=== PATIENT | female | born 1970 ===

== ENCOUNTER 2023-01-18 04:18 | Day surgery (SDC) | payer OTHER ==
[2023-01-17 08:10] VITALS: BMI 24.1
[~2023-01-18 04:18] MED LIST: BUPIVACAINE HCL/PF 0.5% (5MG/ML) 10 ML VIAL IJ ONE
[2023-01-18] MEDS ORDERED: MIDAZOLAM HCL 2 MG/2 ML SINGLE DOSE VIAL ONE ×2 (07:02→07:40)
[2023-01-18] MEDS ORDERED: KETAMINE HCL 500 MG/10 ML VIAL ONE (07:02)
[2023-01-18] MEDS ORDERED: PROPOFOL 20 ML ONE (07:03)
[2023-01-18] MEDS ORDERED: BUPIVACAINE HCL/PF 0.5% (5MG/ML) 10 ML VIAL ONE (07:42)
[2023-01-18] MEDS ORDERED: LIDOCAINE HCL 1%, 10 MG/ML (10ML VIAL) MDV ONE (07:42)
[2023-01-18] MEDS ORDERED: ACETAMINOPHEN INJECTION 100 ML IVPB ONE (07:42)
[2023-01-18] MEDS ORDERED: CLINDAMYCIN 900 MG PREMIX BAG IVPB ONE (07:45)
[2023-01-18] MEDS ORDERED: LIDOCAINE 1% P/F 10 MG/ML VIAL INF ONE (07:48)
[2023-01-18] MEDS ORDERED: PROPOFOL 60 ML ONE (08:03)
[2023-01-18] MEDS ORDERED: BUPIVACAINE HCL/PF 0.5% (5MG/ML) 10 ML VIAL IJ ONE (08:47)
[2023-01-18 09:15] VITALS: RESP 20
[2023-01-18 11:46] VITALS: BP 120/70; PULSE 60; TEMP 98
== END 2023-01-18 11:46 | disposition home or self-care (01) ==
LOC: JASU-SURG 04:18
PROVIDERS: ATTEND Podiatrist Foot Surgery
PROC: 0QSP04Z Reposition Left Metatarsal with Internal Fixation Device, Open Approach (ICD-10-PCS; principal; 2023-01-18 07:30)
DX: M21.612 Bunion of left foot (principal)
CPT/HCPCS: 81025; 88305-TC; 88311-TC